=== PATIENT | male | born 1990 | race Asian ===

== ENCOUNTER 2018-05-18 10:41 | Emergency (ER) | payer SELFPAY ==
[~2018-05-18] VITALS: Ht 180.3 cm; Wt 106.8 kg
[2018-05-18] MEDS ORDERED: LIDOCAINE 1% 10 ML VIAL INJ ONE (12:15)
[2018-05-18 12:30] VITALS: BP 147/89
== END 2018-05-18 13:07 | disposition home or self-care (01) ==
LOC: EMS 10:43
DX: S01.511A Laceration without foreign body of lip, initial encounter (principal); S01.81XA Laceration without foreign body of other part of head, initial encounter; V00.131A Fall from skateboard, initial encounter; Y93.51 Activity, roller skating (inline) and skateboarding; Y92.89 Other specified places as the place of occurrence of the external cause; Y99.8 Other external cause status
CPT/HCPCS: 12013; 99284; J3490; 12051